=== PATIENT | female | born 2000 | race Two or more races ===

== ENCOUNTER → 2022-10-18 15:34 | Outpatient (REF) | payer OTHER, SELFPAY ==
--- NOTE | 2022-10-18 15:50 | ECG_ITS ---
Test Reason : SYNCOPE Blood Pressure : / mmHG Vent. Rate : 070 BPM Atrial Rate : 070 BPM P-R Int : 118 ms QRS Dur : 080 ms QT Int : 376 ms P-R-T Axes : 023 085 033 degrees QTc Int : 406 ms Normal sinus rhythm with sinus arrhythmia Normal ECG No previous ECGs available Referred By: Jennifer Oropeza Electronically Signed By:JASSI SUÁREZ MD
== END ==
LOC: HO.CARD 15:34
PROVIDERS: PCP Pediatrics; Visit Provider Pediatrics
DX: R55 Syncope and collapse (principal)
CPT/HCPCS: 93005

== ENCOUNTER → 2022-10-18 15:50 | Outpatient (BNV) | payer OTHER, SELFPAY | PROVIDERS: PCP Pediatrics; Visit Provider Internal Medicine Cardiovascular Disease | DX: R55 Syncope and collapse (principal) | CPT/HCPCS: 93010 ==

== ENCOUNTER 2023-11-23 12:07 | Emergency (ER) | payer OTHER, SELFPAY ==
[2023-11-23] VITALS (7 sets, daily range): BP systolic 114–130; BP diastolic 63–80; PULSE 64–87; RESP 16–18; TEMP 36–36.8; O2SAT 94–100; BMI 41.2
--- NOTE | ~2023-11-23 | CT_ITS ---
EXAMINATION: CT HEAD WITHOUT CONTRAST CLINICAL INFORMATION: Syncope with left head strike COMPARISON: None available. TECHNIQUE: Contiguous axial imaging was performed from the skull base to vertex without intravenous administration of contrast. This CT examination was performed using dose optimization techniques as appropriate, variously including the following: *Automated exposure control *Adjustment of mA and/or kV according to patient size (this includes techniques or standardized protocols for targeted exams where dose is matched to indication/reason for exam; i.e. extremities or head) *Use of iterative reconstruction technique DLP: 703 mGy-cm FINDINGS: There is no evidence of acute intracranial hemorrhage or edematous territorial infarction. The ng-white matter differentiation appears preserved. The ventricles are normal in configuration. There is no mass effect or midline shift. No acute extra-axial collection. No acute osseous or soft tissue abnormality. Small mucus retention cyst in the left frontal sinus. Otherwise the paranasal sinuses and mastoids are well-aerated. CT/CT head/brain wo IV con IMPRESSION: No acute intracranial pathology. Electronically signed by: Julito Mullen MD 11/23/2023 02:17 PM EDT
--- NOTE | ~2023-11-23 | XR_ITS ---
EXAMINATION: XR CHEST CLINICAL INFORMATION: Syncope COMPARISON: None available. TECHNIQUE: Frontal portable view of the chest was obtained. FINDINGS: The mediastinum, scotty, vasculature, lungs and visualized pleural margins are within normal limits. No suspicious focal bony lesion. XR/XR chest 1V IMPRESSION: No acute chest disease Electronically signed by: Caio Orozco MD 11/23/2023 06:50 PM EDT RP
--- NOTE | 2023-11-23 12:14 | ED.SYNCOPE ---
HPI - Syncope General Chief Complaint: Syncope Stated Complaint: Syncope, hit head Time Seen by Provider: 11/23/23 16:01 History of Present Illness ED Provider: Jnena SMITH narrative: 23-year-old female with past medical history of anxiety currently taking Wellbutrin presenting for syncope. Patient states that she was using the toilet and began feeling anxious and nauseous and when she stood up she passed out. Father states that she was unconscious for approximately 5-10 minutes. Patient struck the left side of her head on the ground when she fell in his current complaining of mild pain at that area. She states that come in anxious and nauseous is common for her given her anxiety however she normally does not pass out. Last time this happened it was earlier in the year. She currently does not have a PCP so has not talked to any outpatient providers about these episodes. She denies chest pain, abdominal pain, vomiting, urinary symptoms, diarrhea, weakness. Her last menstrual cycle ended approximately 1 week ago and she denies heavy bleeding Related Data Allergies Allergy/AdvReac Type Severity Reaction Status Date / Time No Known Allergies Allergy Unknown UNKNOWN Verified 11/23/23 12:17 [NO KNOWN ALLERGIES] Review of Systems Review of Systems: Patient endorses anxiousness, nausea, left-sided head pain Patient denies chest pain, shortness of breath, abdominal pain, vomiting, urinary symptoms, fevers, chills [facility] Past Medical History Attestation statement: The following information was validated with the patient. [facility] Narrative: Anxiety Social History Social History Alcohol intake: current Alcohol intake frequency: holidays/special occasions only Smoked in Last 30 Days: No Use of substances other than those prescribed or required for medical reasons: Yes Substance Use Type: Marijuana Substance Use Frequency: Daily Last Used Substance: Hours (ago) Advance Directives: No Advance Directives Information Provided: No Patient : No Physical Exam Vital Signs: Vital Signs: Last Vital Signs Temp 98.3 F 11/23/23 19:31 Pulse 78 11/23/23 19:31 Resp 18 11/23/23 19:31 BP 126/73 11/23/23 19:31 Pulse Ox 100 11/23/23 19:31 O2 Del Method Room Air 11/23/23 19:31 BMI result Body Mass Index 41.2 Mild tenderness and erythema lateral to left eyebrow No midline C-spine tenderness No focal neurologic deficits Lungs clear to auscultation bilaterally Normal S1-S2 regular rate and rhythm Abdomen is soft nontender nondistended Course Course Course Narrative: This is a Rapid Medical Examination (RME) performed by Kim Awad PA-C in triage. Full HPI, ROS, assessment and treatment plan per primary provider in the Main ED. 23 yo female here for eval after syncopal episode at 9/10 am this morning. reports waking up feeling generally unwell and nauseaous. ambulated to the bathroom and while seated on the toilet, became dizzy and syncopized. reports head strike on the floor. states she was on the ground for approx 10 mins. endorses 1/10 left sided headache at present. denies chest pain, palpitations, sob, vision changes. denies neck pain. dad at bedside states this happened one other time last year, she was told she was dehydrated. + perrla. ambulating with steady gait. no palpable skull fx. exam nonfocal. Plan: labs, ekg, ct scan Medications Administered Discontinued Medications Generic Name Dose Route Start Last Admin Trade Name Freq PRN Reason Stop Dose Admin Sodium Chloride 1,000 mls @ 999 mls/hr 11/23/23 17:00 11/23/23 17:49 Ns IV 11/23/23 18:00 999 mls/hr .Q1H1M [facility] Administration Medical Decision Making Medical Decision Making [facility] Narrative: This is a 23-year-old female with past medical history of anxiety presenting for syncope I am concerned for a vasovagal episode and orthostatic hypotension however I am also considering electrolyte/metabolic disturbance, , anemia, arrhythmia I am not concerned for significant intracranial trauma however CT head was ordered. I reviewed imaging and did not appreciate any large bleed and radiologist's impression is negative Patient is not anemic nor does she have an NICK. The rest of her lab work was within normal limits. Her beta-hCG is negative. Mostly labs were ordered in triage however I added fluids, chest x-ray, TSH and orthostatics to further evaluate TSH within normal limits and orthostatics were normal Patient's chest x-ray did not show any large pneumo I gave patient PCP referral information and instructed her to schedule an appointment. I also gave her return precautions Differential Diagnosis Differential Diagnoses: The differential diagnosis associated with the presentation includes Vasovagal episode, orthostatic hypotension Lab Data [facility] Lab Attestation statement: I reviewed the patient's lab results. Good H&H, BMP within normal limits, negative beta hCG, UA clean 11/23/23 12:28 11/23/23 12:28 Labs: Lab Results 11/23/23 11/23/23 11/23/23 Range/Units 12:28 17:14 19:05 WBC 9.8 (4.8-10.8) X10*3/uL RBC 4.34 (4.20-5.50) X10*6/uL Hgb 13.3 (12.0-16.0) g/dl Hct 41.2 (37.0-47.0) % MCV 94.9 (80.0-98.0) fL MCH 30.6 (27.0-33.0) pg MCHC 32.3 (31.0-35.0) g/dl RDW 12.3 (11.0-16.0) % Plt Count 354 (160-400) X10*3/uL MPV 10.1 (9.4-12.3) fL Immature Gran % (Auto) 0.3 (0.0-0.4) % Neut % (Auto) 72.3 (45-73) % Lymph % (Auto) 20.2 (20-40) % Story % (Auto) 5.9 (2-11) % Eos % (Auto) 1.2 (0-4) % Baso % (Auto) 0.1 (0-2) % Lymph # (Auto) 2.0 (1.2-4.9) X10*3/uL Story # (Auto) 0.6 (0.1-1.2) X10*3/uL Eos # (Auto) 0.1 (0.0-0.4) X10*3/uL Baso # (Auto) 0.0 (0.0-0.2) X10*3/uL Abs Immat Gran (auto) 0.03 (0.00-0.03) X10*3/uL Absolute Neuts (auto) 7.1 (2.0-8.3) x10*3/uL Absolute Nucleated RBC 0.000 (0.0-0.012) X10*3/uL Nucleated RBC % (auto) 0.0 (0.0-0.2) /100WBC PT 11.1 (11.1-13.3) SEC INR 0.9 (0.9-1.1) Sodium 138 (135-145) mmol/L Potassium 4.5 (3.3-5.1) mmol/L Chloride 108 (96-108) mmol/L Carbon Dioxide 22 (22-29) mmol/L Anion Gap 13 (12-20) BUN 9 (9-16) mg/dL Creatinine 0.75 (0.5-1.4) mg/dL Estim Creat Clear Calc 143.0 Estimated GFR > 60 Random Glucose 109 (60-115) mg/dL Lactic Acid 0.6 (0.5-2.0) mmol/L Calcium 9.1 (8.4-10.2) mg/dL Magnesium 2.1 (1.6-2.6) mg/dL Total Bilirubin 0.2 (0.0-1.0) mg/dL AST 17 (5-31) U/L ALT 15 (0-31) U/L Alkaline Phosphatase 76 (39-117) U/L Total Creatine Kinase 94 (26-140) U/L Troponin I High Sens < 2.7 (<3.5-17.0) ng/L Total Protein 6.9 (6.5-8.0) g/dL Albumin 3.9 (3.5-5.0) g/dL TSH 1.31 (0.32-4.0) uIU/mL Beta HCG, Quant < 2 mIU/mL Urine Color Yellow Urine Appearance Clear Urine pH 7.5 (5.0-9.0) Ur Specific [place] 1.020 (1.005-1.025) Urine Protein Negative (Neg-Trace) mg/dL Urine Glucose (UA) Negative (Negative) mg/dL Urine Ketones Negative (Negative) mg/dL Urine Blood Negative (Negative) Urine Nitrite Negative (Negative) Ur Leukocyte Esterase Negative (Negative) Independent Interpretation I performed an independent interpretation of an: EKG, Plain X-Ray and CT Scan Interpretation: No ischemic changes seen on EKG. I do not appreciate a large bleed on her CT head I reviewed patient's chest x-ray did not appreciate any abnormalities Radiology Impression Discussion of test interpretation with radiology: I have reviewed the radiologist's reading. Radiologist Impression: Negative CT head Negative chest x-ray Discharge Plan Discharge Clinical Impression: Syncope and collapse Patient Disposition: Home, Self-Care Instructions: Syncope (ED) Additional Instructions: Please schedule an appointment with 1 of the primary care clinics listed in your discharge paperwork If you develop any new or worsening symptoms please seek immediate medical attention or return to this emergency department Referrals: [facility] [Provider Group] [facility] [Provider Group] Discharge Date/Time: 11/23/23 19:40 Print Language: Kazakh
--- NOTE | 2023-11-23 12:17 | ECG_ITS ---
Test Reason : SYNCOPE Blood Pressure : / mmHG Vent. Rate : 084 BPM Atrial Rate : 084 BPM P-R Int : 122 ms QRS Dur : 076 ms QT Int : 362 ms P-R-T Axes : 022 083 038 degrees QTc Int : 427 ms Normal sinus rhythm Normal ECG When compared with ECG of 18-OCT-2022 15:48, No significant change was found Referred By: Johanny Awad Electronically Signed By:KYLE BARRIOS
[2023-11-23 12:33] LABS: MANUAL DIFF FLAG NO
[2023-11-23 12:34] LABS: Basophils Percent Auto 0.1 % (0-2); Eosinophils Absolute Auto 0.1 X10*3/uL (0.0-0.4); Eosinophils Percent Auto 1.2 % (0-4); Hematocrit 41.2 % (37.0-47.0); Hemoglobin 13.3 g/dl (12.0-16.0); Imm Gran Abs Auto 0.03 X10*3/uL (0.00-0.03); Imm Gran Pct Auto 0.3 % (0.0-0.4); Lymphocytes Percent Auto 20.2 % (20-40); Mean Corpuscular HGB Conc 32.3 g/dl (31.0-35.0); Mean Corpuscular Hemoglobin 30.6 pg (27.0-33.0); Mean Corpuscular Volume 94.9 fL (80.0-98.0); Mean Platelet Volume 10.1 fL (9.4-12.3); Monocytes Absolute Auto 0.6 X10*3/uL (0.1-1.2); Monocytes Percent Auto 5.9 % (2-11); Neutrophils Absolute Auto 7.1 x10*3/uL (2.0-8.3); Neutrophils Percent Auto 72.3 % (45-73); Platelet Count 354 X10*3/uL (160-400); Red Blood Count 4.34 X10*6/uL (4.20-5.50); Red Cell Distribution Width 12.3 % (11.0-16.0); White Blood Count 9.8 X10*3/uL (4.8-10.8)
[2023-11-23 12:39] LABS: INTERNATIONAL NORM RATIO 0.9 (0.9-1.1); Prothrombin Time 11.1 SEC (11.1-13.3)
[2023-11-23 12:50] LABS: Alanine Aminotransferase 15 U/L (0-31); Albumin Level 3.9 g/dL (3.5-5.0); Alkaline Phosphatase 76 U/L (39-117); Anion Gap 13 (12-20); Aspartate Amino Transferase 17 U/L (5-31); Bilirubin Total 0.2 mg/dL (0.0-1.0); Blood Urea Nitrogen 9 mg/dL (9-16); Calcium 9.1 mg/dL (8.4-10.2); Carbon Dioxide 22 mmol/L (22-29); Chloride 108 mmol/L (96-108); Estimated Glomerular Filt Rate > 60; Glucose Random 109 mg/dL (60-115); Magnesium 2.1 mg/dL (1.6-2.6); Potassium 4.5 mmol/L (3.3-5.1); Sodium 138 mmol/L (135-145); Total Protein 6.9 g/dL (6.5-8.0)
[2023-11-23 12:59] LABS: Troponin-I High Sensitivity < 2.7 ng/L (<3.5-17.0)
[2023-11-23 13:21] LABS: HCG Quantitative < 2 mIU/mL
[2023-11-23] MEDS: 0.9 % Sodium Chloride 1,000 ML 999 ML IV (17:49)
[2023-11-23 17:57] LABS: Lactic Acid 0.6 mmol/L (0.5-2.0)
[2023-11-23 18:16] LABS: TSH reflex Free T4 1.31 uIU/mL (0.32-4.0)
[2023-11-23 19:36] LABS: Appearance Urine Clear; Color Urine Yellow; Glucose Urine UA Negative (Negative); Leukocyte Esterase Urine Negative (Negative); Nitrite Urine Negative (Negative); PH 7.5 (5.0-9.0); Urine Blood Negative (Negative); Urine Ketones Negative (Negative); Urine Protein Negative (Neg-Trace)
== END 2023-11-23 19:40 | disposition home or self-care (01) ==
PROVIDERS: Physician Assistant Medical; Emergency Provider Student in an Organized Health Care Education/Training Program
DX: R55 Syncope and collapse (principal); R51.9 Headache, unspecified; M54.2 Cervicalgia; R07.89 Other chest pain; Z79.899 Other long term (current) drug therapy
CPT/HCPCS: 36415; 70450; 71045; 80053; 81003; 82550; 83605; 83735; 84443; 84484; 84702; 85025; 85610; 93005; 99284; 99285